=== PATIENT | male | born 1950 | race Caucasian/White ===

== ENCOUNTER → 2017-06-12 | Outpatient (CLI) | payer MEDICARE ==
[~2017-06-12] MED LIST: ALLO300T2 PO; ASPI-999 PO; CIPR500T4 PO; HYDR-3816 PO; LOSA1TAB23 PO; LOSA50TA36 PO; TEMA30CA PO
--- NOTE | 2017-06-12 12:40 | Diagnostic Imaging Report ---
PROCEDURE: US Carotid Duplex Bilateral. TECHNIQUE: Multiple Real-time grayscale images were obtained over the carotid arteries in various projections bilaterally. Additional duplex Doppler and color Doppler images were also obtained. INDICATION: TIA, right facial numbness. COMPARISON: There are no prior studies available for comparison. FINDINGS: There is very mild soft plaque formation in both carotid systems. The flow velocities fail to show any sign of a hemodynamically significant stenosis of the common or internal carotid arteries. Both vertebral arteries are identified and there is antegrade flow bilaterally. IMPRESSION: There is mild atherosclerotic plaque in both carotid systems but there is no evidence for a hemodynamically significant stenosis of the common or internal carotid arteries. Dictated by: Dictated on workstation # [id number]
== END ==
LOC: RAD 10:46
PROVIDERS: ATTEND Internal Medicine
DX: R20.2 Paresthesia of skin (principal); Z86.73 Personal history of transient ischemic attack (TIA), and cerebral infarction without residual deficits
CPT/HCPCS: 93880

== ENCOUNTER → 2017-06-17 | Outpatient (CLI) | payer MEDICARE ==
[~2017-06-17] MED LIST changes: -ASPI-999 PO; -LOSA1TAB23 PO; +LOSA1TAB70 PO; -LOSA50TA36 PO
[2017-06-17 11:29] LABS: BASOPHILS % (AUTO) 0 % (0-10); EOSINOPHILS # (AUTO) 0.2 10^3/uL (0.0-0.3); EOSINOPHILS % (AUTO) 2 % (0-10); LYMPHOCYTES # (AUTO) 1.8 X 10^3 (1.0-4.0); LYMPHOCYTES % (AUTO) 17 % (12-44); MEAN CORPUSCULAR HEMOGLOBIN 32 PG (25-34); MEAN CORPUSCULAR HGB CONC 33 G/DL (32-36); MEAN CORPUSCULAR VOLUME 97 FL (80-99); MEAN PLATELET VOLUME 9.7 FL (7.4-10.4); MONOCYTES # (AUTO) 1.2 X 10^3 (0.0-1.0); MONOCYTES % (AUTO) 11 % (0-12); NEUTROPHILS # (AUTO) 7.7 X 10^3 (1.8-7.8); NEUTROPHILS % (AUTO) 70 % (42-75); PLATELET COUNT 202 10^3/uL (130-400); RED BLOOD COUNT 4.53 10^6/uL (4.35-5.85); RED CELL DISTRIBUTION WIDTH 14.6 % (10.0-14.5); WHITE BLOOD COUNT 10.9 10^3/uL (4.3-11.0)
[2017-06-17 12:12] LABS: EOSINOPHILS % (MANUAL) 1 %; LYMPHOCYTES % (MANUAL) 18 %; NEUTROPHILS % (MANUAL) 75 %
== END ==
LOC: LAB 10:56
PROVIDERS: ATTEND Internal Medicine
DX: R07.9 Chest pain, unspecified (principal); R06.02 Shortness of breath
CPT/HCPCS: 36415; 84484; 85007; 85027; 85379

== ENCOUNTER 2017-07-02 10:07 | Day surgery (SDC) | payer MEDICARE ==
[~2017-07-02] VITALS: Ht 182.9 cm; Wt 113.4 kg
[2017-07-02] VITALS (9 sets, daily range): BP systolic 119–136; BP diastolic 87–107
[~2017-07-02 10:07] MED LIST changes: +LOSA1TAB23 PO; -LOSA1TAB70 PO
[2017-07-02] MEDS ORDERED: NS IV 1000 ML 1,000 ML ONE (10:14)
[2017-07-02] MEDS ORDERED: HEParin (CATH LAB) 2,000 ML IV ONE (10:14)
[2017-07-02] MEDS ORDERED: NS IV 1000 ML 1,000 ML IV SCH ×2 (10:30→14:11)
[2017-07-02 10:50] LABS: RED BLOOD COUNT 4.64 10^6/uL (4.35-5.85); RED CELL DISTRIBUTION WIDTH 14.4 % (10.0-14.5); WHITE BLOOD COUNT 6.4 10^3/uL (4.3-11.0)
[2017-07-02] MEDS ORDERED: LOSA50TA36 PO ×2 (10:52)
[2017-07-02] MEDS ORDERED: ASPI-999 PO ×2 (10:52)
[2017-07-02 11:02] LABS: PROTHROMBIN TIME PATIENT 13.2 SEC (12.2-14.7)
[2017-07-02 11:32] LABS: ALANINE AMINOTRANSFERASE 41 U/L (0-55); ANION GAP 10 MMOL/L (5-14); ASPARTATE AMINO TRANSFERASE 31 U/L (5-34); BILIRUBIN,TOTAL 0.6 MG/DL (0.1-1.0); BLOOD UREA NITROGEN 13 MG/DL (7-18); BUN/CREATININE RATIO 14; CALCIUM 8.8 MG/DL (8.5-10.1); CARBON DIOXIDE 20 MMOL/L (21-32); CHLORIDE 109 MMOL/L (98-107); CHOLESTEROL 178 MG/DL (< 200); CREATININE SERUM 0.91 MG/DL (0.60-1.30); DIRECT LDL 97 MG/DL (1-129); GFR ESTIMATED > 60; GLUCOSE 95 MG/DL (70-105); POTASSIUM 4.3 MMOL/L (3.6-5.0); SODIUM 139 MMOL/L (135-145); TOTAL PROTEIN 7.3 GM/DL (6.4-8.2); TRIGLYCERIDES 207 MG/DL (<150); VLDL CHOLESTEROL 41 MG/DL (5-40)
[2017-07-02] MEDS ORDERED: MIDAZOLAM 5 MG/5 ML (VERSED) VIAL ONE (12:48)
[2017-07-02] MEDS ORDERED: fentaNYL INJECTION 100 MCG/2 ML AMP ONE (12:48)
[2017-07-02] MEDS ORDERED: diphenhydrAMINE 50 MG/ML INJ (BENADRYL) ONE (12:49)
--- NOTE | 2017-07-02 13:05 | Cardiac Procedure Note-CS/ASA ---
Pre-Procedure Note Pre-Op Procedure Note H&P Reviewed The H&P was reviewed, patient examined and no changes noted. Date H&P Reviewed: Jul 02, 2017 Time H&P Reviewed: 13:04 Conscious Sedation Pre-Proced Time Reviewed: 13:04 ASA Class: 3 Airway Mallampati Classification: ([place] appropriate class) I. II. III, IV Lungs Heart ASA score ASA 1: a normal healthy patient ASA 2: a patient with a mild systemic disease (mid diabetes, controlled hypertension, obesity ASA 3: a patient with a severe systemic disease that limits activity (angina , COPD, prior Myocardial infarction) ASA 4: a patient with an incapacitating disease that is a constant threat to life (CHF, renal failure) ASA 5: a moribund patient not expected to survive 24 hrs. (ruptured aneurysm) ASA 6: a declared brain patient whose organs are being harvested. For emergent operations, add the letter E after the classification Grade 2 Sedation Plan: Analgesia, Amnesia, Plan communicated to team members, Discussed options with patient/fam, Discussed risks with patient/fam Note The patient is an appropriate candidate to undergo the planned procedure, sedation, and anesthesia. The patient immediately re-assessed prior to indication. MARCELO PATRICK MD FACP FAC CCDS Jul 02, 2017 13:05
--- NOTE | 2017-07-02 14:14 | Discharge Inst-Post CATH ---
Discharge Inst-CATH Post Cardiac Cath D/C Inst Follow Up/Plan F/u with Dr Miles in 2 weeks CARDIAC CATH DISCHARGE INSTRUCTIONS *Hold Metformin for 48 hours post heart cath. ACTIVITY * Go Home directly and rest. * Limit activity of the leg (or wrist if it was used) for 7 days including aerobics, swimming, jogging, bicycling, etc. * Restrict stair-climbing for 7 days if possible, if not, climb up with your non -cath leg, then bring together on the same step. * Avoid lifting, pushing, pulling or excessive movement of the affected extremity for 7 days. * Customary sexual activity may be resumed after 2 days-use caution not to use a position that strains or causes pain to the affected extremity. * No driving for 24 hours. * NO SMOKING. * Avoid straining for bowel movements for 7 days. * Gentle walking on level ground is allowed. * Returning to work will depend on the type of procedure and the results. Your doctor will discuss this with you. CALL YOUR DOCTOR FOR ANY OF THE FOLLOWING: *If bleeding from the puncture site occurs- Apply gentle pressure to site with clean cloth and call your doctor or EMS. * If a knot or lump forms under the skin, increases in size, or causes pain. * If bruising appears to be worsening or moving further down your leg instead of disappearing. * Temperature above 101 F. CARE OF YOUR GROIN INCISION; * Bruising or purple discoloration of the skin near the puncture site is common. * You may shower only, no bathtub bathing for 5 days. Be careful to avoid slipping as your leg may feel stiff. * If a closure device was used on your femoral artery, please see the attached guide regarding care of the device and your leg. * REMOVE the dressing from your groin the next day after your procedure in the shower. CARE OF YOUR WRIST INCISION; * Bruising or purple discoloration of the skin near the puncture site is common. * You may shower. * DO NOT submerge wrist. * Remove dressing in 24 hours. MARCELO MILES MD FACP [facility] CCDS Jul 02, 2017 14:14
[2017-07-02] MEDS ORDERED: PATIENT MAY USE OWN MEDS, ALL PO SCH (14:15)
--- NOTE | 2017-07-02 14:15 | Discharge Inst-Cardiology ---
Discharge Inst-Cardiac Discharge Medications Continued Medications: Allopurinol (Allopurinol) 300 Mg Tablet 300 MG PO DAILY Aspirin (Aspirin) 81 Mg Tab.chew 81 MG PO DAILY, TAB Losartan Potassium (Losartan Potassium) 50 Mg Tablet 50 MG PO DAILY, TAB Temazepam (Temazepam) 30 Mg Capsule 60 MG PO HS TAKES 2 (30 MG) CAPSULES AT BEDTIME Orders-Post D/C & Referrals Pneu Vac Indicated: Yes MARCELO PATRICK MD FACP FACC CCDS Jul 02, 2017 14:15
--- NOTE | 2017-07-02 23:10 | CARDIAC CATHETERIZATION ---
DATE OF SERVICE: 07/02/2017 PROCEDURE: Cardiac catheterization HISTORY OF PRESENT ILLNESS: The patient is a 66-year-old gentleman, who has multiple coronary artery disease risk factors and who has been experiencing symptoms that are consistent with new onset of angina pectoris. Cardiac catheterization was carried out today after having obtained an informed consent. PROCEDURE: He was brought to the cardiac catheterization laboratory in a fasting state. Right groin was prepared and draped in the usual sterile fashion. Lidocaine 1% used for local anesthesia. Modified Seldinger technique was used to advance a 5-[place] sheath into the right femoral artery. A 5-[place] JL4 catheter was used for left coronary angiography. All catheter exchanges were made over an exchange length wire. This is because that appeared to be considerable tortuosity of the thoracic and abdominal aorta. We used a 5-[place]ian JR4 catheter, right coronary angiography. A 5-[place]ian pigtail catheter was used for left heart catheterization, left ventricular angiography. Pigtail was then pulled back to the aortic arch and aortic arch angiography was performed. He tolerated the procedure well. At the end of the procedure, amenable pressure was used to achieve hemostasis. HEMODYNAMICS: Left ventricular end-diastolic pressure following coronary angiography was 11 mmHg. There was no significant pressure gradient on pullback across the aortic valve. Ascending aortic pressure was 135/40 with a mean of 92 mmHg. LEFT VENTRICULAR ANGIOGRAPHY: Left ventricular angiography was carried out in the right anterior oblique projection. Global left ventricular systolic function normal. No regional wall motion abnormalities are seen. Left ventricular ejection fraction is 60%-65%. There is no significant mitral regurgitation. CORONARY ANGIOGRAPHY: Left main coronary artery, left circumflex artery, left anterior descending artery, right coronary artery are all free of angiographically significant coronary artery disease. Only minor coronary plaques were seen. The left circumflex artery is dominant. THORACIC AORTIC ARCH ANGIOGRAPHY: Aortic arch angiography indicates tortuosity of the thoracic and abdominal aorta, but there does not appear to be significant aneurysm or dissection. The neck arteries, to the extent seen, do not have significant disease. CONCLUSIONS: 1. Angiographically minimal coronary artery disease. 2. Normal global left ventricular systolic function with ejection fraction of 60%-65%. 3. Normal left ventricular end-diastolic pressure. 4. No significant mitral regurgitation. 5. Tortuosity of the thoracic and abdominal aorta. DISCUSSION AND RECOMMENDATIONS: Based on results of the study, it appears appropriate to continue a conservative approach. Risk factor modification has been reviewed and outpatient followup is advised. Job ID: [id number] DocumentID: [id number] Dictated Date: 07/02/2017 13:55:34 [place] Date: 07/02/2017 15:02:26 Dictated By: MARCELO PATRICK MD, MA, FACP, FACC,
== END 2017-07-02 18:00 | disposition home or self-care (01) ==
LOC: CATH 10:07
PROVIDERS: ATTEND Nurse Practitioner Family
DX: R07.89 Other chest pain (principal); I25.10 Atherosclerotic heart disease of native coronary artery without angina pectoris; R06.02 Shortness of breath; I10 Essential (primary) hypertension; R94.31 Abnormal electrocardiogram [ECG] [EKG]; H91.90 Unspecified hearing loss, unspecified ear; M54.9 Dorsalgia, unspecified; Z79.899 Other long term (current) drug therapy; Z82.49 Family history of ischemic heart disease and other diseases of the circulatory system
CPT/HCPCS: 36221; 36415; 80053; 80061; 85027; 85610; 85730; 87081; 93458

== ENCOUNTER → 2017-07-08 | Outpatient (CLI) | payer MEDICARE ==
[~2017-07-08] MED LIST changes: +ASPI-999 PO; -LOSA1TAB23 PO; +LOSA1TAB70 PO; +LOSA50TA36 PO
== END ==
LOC: CARD 08:33
PROVIDERS: ATTEND Internal Medicine Cardiovascular Disease
DX: I44.4 Left anterior fascicular block (principal); I65.23 Occlusion and stenosis of bilateral carotid arteries; I10 Essential (primary) hypertension; R06.02 Shortness of breath; Z87.891 Personal history of nicotine dependence
CPT/HCPCS: 93306

== ENCOUNTER → 2017-07-10 | Outpatient (CLI) | payer MEDICARE ==
[~2017-07-10] MED LIST changes: +LOSA1TAB23 PO; -LOSA1TAB70 PO
== END ==
LOC: RT 08:20
PROVIDERS: ATTEND Internal Medicine
DX: R53.83 Other fatigue; R06.02 Shortness of breath; R07.9 Chest pain, unspecified
CPT/HCPCS: 94060; 94726; 94729

== ENCOUNTER → 2017-07-12 | Outpatient (CLI) | payer MEDICARE ==
--- NOTE | 2017-07-12 10:20 | Diagnostic Imaging Report ---
PA and lateral views of the chest. INDICATION: Shortness of breath. FINDINGS: The lungs are clear. The heart size is normal. No effusion or pneumothorax. The mediastinum and danilo appear unremarkable. Partially visualized posterior fusion hardware and lumbar spine seen. IMPRESSION: Unremarkable exam. Dictated by: Dictated on workstation # [id number]
== END ==
LOC: RAD 09:32
PROVIDERS: ATTEND Internal Medicine
DX: R06.02 Shortness of breath (principal); R05 Cough
CPT/HCPCS: 71020

== ENCOUNTER → 2018-04-21 | Outpatient (CLI) | payer MEDICARE ==
[~2018-04-21] MED LIST changes: +HYDR-34 PO; -HYDR-3816 PO
[2018-04-21 15:38] LABS: BASOPHILS % (AUTO) 0 % (0-10); EOSINOPHILS # (AUTO) 0.2 10^3/uL (0.0-0.3); EOSINOPHILS % (AUTO) 3 % (0-10); HEMATOCRIT 40 % (40-54); HEMOGLOBIN 13.9 G/DL (13.3-17.7); LYMPHOCYTES # (AUTO) 1.9 X 10^3 (1.0-4.0); LYMPHOCYTES % (AUTO) 32 % (12-44); MEAN CORPUSCULAR HEMOGLOBIN 34 PG (25-34); MEAN CORPUSCULAR HGB CONC 34 G/DL (32-36); MEAN CORPUSCULAR VOLUME 99 FL (80-99); MEAN PLATELET VOLUME 10.5 FL (7.4-10.4); MONOCYTES # (AUTO) 0.4 X 10^3 (0.0-1.0); MONOCYTES % (AUTO) 6 % (0-12); NEUTROPHILS # (AUTO) 3.4 X 10^3 (1.8-7.8); NEUTROPHILS % (AUTO) 58 % (42-75); PLATELET COUNT 206 10^3/uL (130-400); RED CELL DISTRIBUTION WIDTH 13.7 % (10.0-14.5); WHITE BLOOD COUNT 5.9 10^3/uL (4.3-11.0)
[2018-04-21 15:57] LABS: ALANINE AMINOTRANSFERASE 17 U/L (0-55); ALKALINE PHOSPHATASE 100 U/L (40-136); AMYLASE 35 U/L (25-125); BILIRUBIN,TOTAL 0.3 MG/DL (0.1-1.0); BUN/CREATININE RATIO 18; CARBON DIOXIDE 24 MMOL/L (21-32); CHLORIDE 109 MMOL/L (98-107); CREATININE SERUM 0.95 MG/DL (0.60-1.30); GFR ESTIMATED > 60; GLUCOSE 95 MG/DL (70-105); LIPASE 8 U/L (8-78); POTASSIUM 4.3 MMOL/L (3.6-5.0); SODIUM 141 MMOL/L (135-145); TOTAL PROTEIN 6.9 GM/DL (6.4-8.2)
== END ==
LOC: LAB 14:53
PROVIDERS: ATTEND Nurse Practitioner Family
DX: M54.5 Low back pain (principal)
CPT/HCPCS: 36415; 80053; 82150; 83690; 85025

== ENCOUNTER → 2018-09-18 | Outpatient (CLI) | payer MEDICARE ==
[~2018-09-18] MED LIST changes: +IOHEXOL 350 MG/ML 100 ML (OMNIPAQUE 350) VIAL IV ONE; -LOSA50TA36 PO; +LOSA50TA7 PO; +NS 250 ML (IVPB) BAG IV ONE; +RECEIVED CONTRAST (Hold Metformin) IV SCH
--- NOTE | 2018-09-18 10:48 | Diagnostic Imaging Report ---
PROCEDURE: CT abdomen with and without contrast. TECHNIQUE: Multiple contiguous axial CT images of the abdomen were obtained prior to and after intravenous administration of iodinated contrast. INDICATION: Weight loss and left lower quadrant pain. COMPARISON: Comparison is made with prior CT from 11/03/2015. FINDINGS: The lung bases are clear. The liver contains a low-density lesion in the inferior right lobe posteriorly, stable approximately 12-13 mm. Gallbladder is surgically absent. There appears to be trace pneumobilia which could be owing to incompetent sphincter. Pancreas is unremarkable on today's study. Previously seen peripancreatic inflammation has resolved. The spleen is unremarkable. No adrenal mass is identified. The kidneys are unremarkable. The aorta is non-aneurysmal. The small and large bowel loops are normal caliber. There is no ascites. Spinal instrumentation of the lumbar spine is seen. No central retroperitoneal or mesenteric lymphadenopathy is detected. IMPRESSION: Essentially unremarkable CT of the abdomen with and without contrast. There appears to be stable probable cyst in the right lobe of the liver. No abdominal lymphadenopathy is detected. Dictated by: Dictated on workstation # [id number]
== END ==
LOC: RAD 09:26
PROVIDERS: ATTEND Internal Medicine
DX: R10.32 Left lower quadrant pain (principal); R63.4 Abnormal weight loss; Z90.49 Acquired absence of other specified parts of digestive tract
CPT/HCPCS: 74170

== ENCOUNTER → 2018-09-22 | Outpatient (CLI) | payer MEDICARE ==
[~2018-09-22] MED LIST changes: -IOHEXOL 350 MG/ML 100 ML (OMNIPAQUE 350) VIAL IV ONE; -NS 250 ML (IVPB) BAG IV ONE; -RECEIVED CONTRAST (Hold Metformin) IV SCH
== END | disposition home or self-care (01) ==
LOC: PREOP 10:22
PROVIDERS: ATTEND Internal Medicine
DX: Z01.818 Encounter for other preprocedural examination (principal)

== ENCOUNTER 2018-09-23 06:56 | Day surgery (SDC) | payer MEDICARE ==
[~2018-09-23] VITALS: Ht 182.9 cm; Wt 113.4 kg
--- OUTSIDE RECORDS SUMMARY | 2018-09-23 07:00 | XMS REPORT | Clinical Summary ---
Author Author [facility] Organization [facility] Address Unknown Phone Unavailable Care Team Providers Care It Professional Name Role Phone Michael Valdes MD PCP Allergies Active Allergy Reactions Severity Noted Date Comments Penicillins 06/20/2017 Unknown Current Medications Prescription Sig. Disp. Refills Start End Date Status Date allopurinol (ZYLOPRIM) Take 300 mg by mouth Active 300 MG tablet daily. losartan (COZAAR) 50 MG Take 50 mg by mouth Active tablet daily. temazepam (RESTORIL) 30 Take 30 mg by mouth Active mg capsule nightly as needed for sleep. diclofenac (VOLTAREN) 75 Take 75 mg by mouth 2 Active MG EC tablet (two) times a day. levoFLOXacin (LEVAQUIN) Take 500 mg by mouth Active 500 MG tablet daily. metroNIDAZOLE (FLAGYL) Take 500 mg by mouth 3 Active 500 MG tablet (three) times a day. Active Problems Problem Noted Date Angina effort (HCC) 06/20/2017 Fatigue Shortness of breath Family History Medical History Relation Name Comments Diabetes Brother DMII Other Brother CAD Other Father CAD Diabetes Mother DMII Hypertension Mother Other Mother CAD Stroke Mother Relation Name Status Comments Brother Father Mother Social History Tobacco Use Types Packs/Day Years Used Date Former Smoker Smokeless Tobacco: Never Used Alcohol Use Drinks/Week oz/Week Comments No Sex Assigned at Date Recorded Not on file Last Filed Vital Signs Vital Sign Reading Time Taken Blood Pressure 142/94 06/20/2017 3:38 PM CDT Pulse 71 06/20/2017 3:38 PM CDT Temperature - - Respiratory Rate - - Oxygen Saturation - - Inhaled Oxygen - - Concentration Weight 115.5 kg (254 lb 9.6 oz) 06/20/2017 3:38 PM CDT Height 182.9 cm (6') 06/20/2017 3:38 PM CDT Body Mass Index 34.53 06/20/2017 3:38 PM CDT Plan of Treatment Health Maintenance Due Date Last Done Comments Hepatitis C Screen 1950 Medicare Annual Wellness 1950 Td # 1950 Colorectal Screening via 2001 Colonoscopy Zoster Vaccine# (1 of 2) 2001 AAA 2016 Depression Screening 2016 PHQ-9 # Fall Risk Assessment # 2016 Pneumococcal Immunization 2016 65+ (1 of 2 - PCV13) Influenza Vaccine (#1) 2018 Results Not on filefrom Last 3 Months
--- OUTSIDE RECORDS SUMMARY | 2018-09-23 07:00 | XMS REPORT | Continuity of Care Document ---
Author Author [facility] Organization [facility] Address Unknown Phone Unavailable Allergies Active Description Code Type Severity Reaction Onset Reported/Identified Relationship to Patient Clinical Status Yes PCN PCN Unknown N/ A 11/03/2015 Yes Penicillins [id number] Drug Allergy Unknown N/A 11/03/2015 Medications There is no data. Problems Date Dx Coded Attending Type Code Diagnosis Diagnosed By 05/30/2012 Ot 211.3 BENIGN NEOPLASM LG BOWEL 05/30/2012 Ot 562.10 DIVERTICULOSIS COLON (W/O MENT OF HEMORR 05/30/2012 Ot V76.51 SCREEN MAL NEOP-COLON 09/01/2014 Ot 401.9 09/01/2014 Ot V72.84 09/02/2014 Ot 401.9 09/02/2014 Ot V72.84 12/08/2014 Ot 401.9 12/08/2014 Ot V72.84 12/15/2014 Ot 401.9 12/15/2014 Ot V72.84 04/18/2015 Ot 401.9 04/18/2015 Ot V72.84 05/20/2015 Ot 401.9 05/20/2015 Ot V72.84 11/03/2015 Ot 401.9 11/03/2015 Ot V72.84 11/03/2015 Ot 401.9 11/03/2015 Ot V72.84 11/05/2015 SINDY CEDENO, AMY Baeza Ot I10 ESSENTIAL (PRIMARY) HYPERTENSION 11/05/2015 AMY CALLAHAN MD Ot K59.00 CONSTIPATION, UNSPECIFIED 11/05/2015 AMY CALLAHAN MD Ot K85.0 IDIOPATHIC ACUTE PANCREATITIS 11/05/2015 AMY CALLAHAN MD Ot M10.9 GOUT, UNSPECIFIED 11/05/2015 AMY CALLAHAN MD Ot Z87.891 PERSONAL HISTORY OF NICOTINE DEPENDENCE 11/23/2015 Ot 401.9 11/23/2015 Ot V72.84 04/12/2016 Ot 401.9 HYPERTENSION NOS 04/12/2016 Ot V72.84 EXAM PRE- OPERATIVE NOS 05/15/2016 Ot 786.2 05/15/2016 Ot 401.9 HYPERTENSION NOS 05/15/2016 Ot V72.84 EXAM PRE- OPERATIVE NOS 09/18/2016 Ot 401.9 HYPERTENSION NOS 09/18/2016 Ot V72.84 EXAM PRE- OPERATIVE NOS 07/02/2017 BAIMA, SANJIV L CANOE MAKER Ot H91.90 UNSPECIFIED HEARING LOSS, UNSPECIFIED EA 07/02/2017 BAIMA, SANJIV L CANOE MAKER Ot I10 ESSENTIAL (PRIMARY) HYPERTENSION 07/02/2017 BAIMA, SANJIV L CANOE MAKER Ot 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 07/02/2017 BAIMA, SANJIV L CANOE MAKER Ot M54.9 DORSALGIA, UNSPECIFIED 07/02/2017 BAIMA, SANJIV L CANOE MAKER Ot R06.02 SHORTNESS OF BREATH 07/02/2017 BAIMA, SANJIV L CANOE MAKER Ot R07.89 OTHER CHEST PAIN 07/02/2017 BAIMA, SANJIV L CANOE MAKER Ot R94.31 ABNORMAL ELECTROCARDIOGRAM [ECG] [EKG] 07/02/2017 BAIMA, SANJIV L CANOE MAKER Ot 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 07/02/2017 BAIMA, SANJIV L CANOE MAKER Ot Z82.49 FAMILY HX OF ISCHEM HEART DIS AND OTH DI 07/05/2017 AMY CALLAHAN MD Ot R20.2 PARESTHESIA OF SKIN 07/05/2017 AMY CALLAHAN MD Ot Z86.73 PRSNL HX OF TIA (TIA), AND CEREB INFRC W 07/08/2017 BAIMA, SANJIV L CANOE MAKER Ot H91.90 UNSPECIFIED HEARING LOSS, UNSPECIFIED EA 07/08/2017 BAIMA, SANJIV L CANOE MAKER Ot I10 ESSENTIAL (PRIMARY) HYPERTENSION 07/08/2017 BAIMA, SANJIV L CANOE MAKER Ot 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 07/08/2017 BAIMA, SANJIV L CANOE MAKER Ot M54.9 DORSALGIA, UNSPECIFIED 07/08/2017 BAIMA, SANJIV L CANOE MAKER Ot R06.02 SHORTNESS OF BREATH 07/08/2017 BAIMA, SANJIV L CANOE MAKER Ot R07.89 OTHER CHEST PAIN 07/08/2017 BAIMA, SANJIV L CANOE MAKER Ot R94.31 ABNORMAL ELECTROCARDIOGRAM [ECG] [EKG] 07/08/2017 SANJIV LANDEROS CANOE MAKER Ot 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 07/08/2017 SANJIV LANDEROS CANOE MAKER Ot Z82.49 FAMILY HX OF ISCHEM HEART DIS AND OTH DI 07/11/2017 AMY CALLAHAN MD Ot R20.2 PARESTHESIA OF SKIN 07/11/2017 AMY CALLAHAN MD Ot Z86.73 PRSNL HX OF TIA (TIA), AND CEREB INFRC W 07/12/2017 AMY CALLAHAN MD Ot R20.2 PARESTHESIA OF SKIN 07/12/2017 AMY CALLAHAN MD Ot Z86.73 PRSNL HX OF TIA (TIA), AND CEREB INFRC W 07/12/2017 AMY CALLAHAN MD Ot R06.02 SHORTNESS OF BREATH 07/12/2017 AMY CALLAHAN MD Ot R07.9 CHEST PAIN, UNSPECIFIED 07/12/2017 DARNELL CEDENO FACC, ALI FACP CCDS Ot I10 ESSENTIAL (PRIMARY) HYPERTENSION 07/12/2017 DARNELL CEDENO FACC, ALI FACP CCDS Ot 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 07/12/2017 DARNELL CEDENO FACC, ALI FACP CCDS Ot 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 07/12/2017 DARNELL CEDENO FACC, ALI FACP CCDS Ot R06.02 SHORTNESS OF BREATH 07/12/2017 DARNELL CEDENO FACC, ALI FACP CCDS Ot Z87.891 PERSONAL HISTORY OF NICOTINE DEPENDENCE 07/12/2017 AMY CALLAHAN MD Ot R06.02 SHORTNESS OF BREATH 07/12/2017 AMY CALLAHAN MD Ot R07.9 CHEST PAIN, UNSPECIFIED 07/12/2017 AMY CALLAHAN MD Ot R53.83 OTHER FATIGUE 07/12/2017 AMY CALLAHAN MD Ot R06.02 SHORTNESS OF BREATH 07/12/2017 AMY CALLAHAN MD Ot R07.9 CHEST PAIN, UNSPECIFIED 07/17/2017 AMY CALLAHAN MD Ot R06.02 SHORTNESS OF BREATH 07/17/2017 AMY CALLAHAN MD Ot R07.9 CHEST PAIN, UNSPECIFIED 07/17/2017 AMY CALLAHAN MD Ot R53.83 OTHER FATIGUE 07/30/2017 AMY CALLAHAN MD Ot M54.16 RADICULOPATHY, LUMBAR REGION 07/30/2017 SINDY CEDENO, AMY Baeza Ot M75.102 UNSP ROTATR-CUFF TEAR/RUPTR OF LEFT SHOU 08/01/2017 DARNELL CEDENO FACC, ALI FACP CCDS Ot I10 ESSENTIAL (PRIMARY) HYPERTENSION 08/01/2017 DARNELL CEDENO FACC, ALI FACP CCDS Ot 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 08/01/2017 DARNELL CEDENO FACC, ALI FACP CCDS Ot 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 08/01/2017 DARNELL CEDENO FACC, ALI FACP CCDS Ot R06.02 SHORTNESS OF BREATH 08/01/2017 DARNELL CEDENO FACC, ALI FACP CCDS Ot Z87.891 PERSONAL HISTORY OF NICOTINE DEPENDENCE 08/01/2017 AMY CALLAHAN MD Ot R06.02 SHORTNESS OF BREATH 08/01/2017 AMY CALLAHAN MD Ot R07.9 CHEST PAIN, UNSPECIFIED 08/01/2017 AMY CALLAHAN MD Ot R53.83 OTHER FATIGUE 08/02/2017 AMY CALLAHAN MD Ot R05 COUGH 08/02/2017 AMY CALLAHAN MD Ot R06.02 SHORTNESS OF BREATH 08/07/2017 DARNELL CEDENO FACC, ALI FACP CCDS Ot I10 ESSENTIAL (PRIMARY) HYPERTENSION 08/07/2017 DARNELL CEDENO FACC, ALI FACP CCDS Ot 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 08/07/2017 DARNELL CEDENO FACC, ALI FACP CCDS Ot 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 08/07/2017 DARNELL CEDENO FACC, ALI FACP CCDS Ot R06.02 SHORTNESS OF BREATH 08/07/2017 DARNELL ENGLANDC, ALI FACP CCDS Ot Z87.891 PERSONAL HISTORY OF NICOTINE DEPENDENCE 08/07/2017 AMY CALLAHAN MD Ot R06.02 SHORTNESS OF BREATH 08/07/2017 AMY CALLAHAN MD Ot R07.9 CHEST PAIN, UNSPECIFIED 08/07/2017 AMY CALLAHAN MD Ot R53.83 OTHER FATIGUE 08/07/2017 AMY CALLAHAN MD Ot R05 COUGH 08/07/2017 AMY CALLAHAN MD Ot R06.02 SHORTNESS OF BREATH 08/22/2017 AMY CALLAHAN MD Ot M54.16 RADICULOPATHY, LUMBAR REGION 08/22/2017 AMY CALLAHAN MD Ot M75.102 UNSP ROTATR-CUFF TEAR/RUPTR OF LEFT SHOU 04/22/2018 DIANA MOSLEY APRN Ot M54.5 LOW BACK PAIN 05/13/2018 DIANA MOSLEY APRN Ot M54.5 LOW BACK PAIN Procedures There is no data. Results Test Result Range Blood CBC with ordered manual differential panel - 06/17/17 11:19 Blood leukocytes automated count (number/volume) 10.9 10*3/uL 4.3-11.0 Blood erythrocytes automated count (number/volume) 4.53 10*6/uL 4.35-5.85 Venous blood hemoglobin measurement (mass/volume) 14.5 g/dL 13.3-17.7 Blood hematocrit (volume fraction) 44 % 40-54 Automated erythrocyte mean corpuscular volume 97 [foz_us] 80-99 Automated erythrocyte mean corpuscular hemoglobin (mass per erythrocyte) 32 pg 25-34 Automated erythrocyte mean corpuscular hemoglobin concentration measurement ( mass/volume) 33 g/dL 32-36 Automated erythrocyte distribution width ratio 14.6 % 10.0-14.5 Automated blood platelet count (count/volume) 202 10*3/uL 130-400 Automated blood platelet mean volume measurement 9.7 [foz_us] 7.4-10.4 Automated blood neutrophils/100 leukocytes 70 % 42-75 Automated blood lymphocytes/100 leukocytes 17 % 12-44 Blood monocytes/100 leukocytes 11 % 0-12 Automated blood eosinophils/100 leukocytes 2 % 0-10 Automated blood basophils/100 leukocytes 0 % 0-10 Blood neutrophils automated count (number/volume) 7.7 10*3 1.8-7.8 Blood lymphocytes automated count (number/volume) 1.8 10*3 1.0-4.0 Blood monocytes automated count (number/volume) 1.2 10*3 0.0-1.0 Automated eosinophil count 0.2 10*3/uL 0.0-0.3 Automated blood basophil count (count/volume) 0.0 10*3/uL 0.0-0.1 Blood blood smear finding identification by light microscopy NO NRG Automated blood complete blood count (hemogram) panel - 07/02/17 10:43 Blood leukocytes automated count (number/volume) 6.4 10*3/uL 4.3-11.0 Blood erythrocytes automated count (number/volume) 4.64 10*6/uL 4.35-5.85 Venous blood hemoglobin measurement (mass/volume) 14.8 g/dL 13.3-17.7 Blood hematocrit (volume fraction) 45 % 40-54 Automated erythrocyte mean corpuscular volume 96 [foz_us] 80-99 Automated erythrocyte mean corpuscular hemoglobin (mass per erythrocyte) 32 pg 25-34 Automated erythrocyte mean corpuscular hemoglobin concentration measurement ( mass/volume) 33 g/dL 32-36 Automated erythrocyte distribution width ratio 14.4 % 10.0-14.5 Automated blood platelet count (count/volume) 243 10*3/uL 130-400 Automated blood platelet mean volume measurement 10.0 [foz_us] 7.4-10.4 PT panel in platelet poor plasma by coagulation assay - 07/02/17 10:43 Prothrombin time (PT) in platelet poor plasma by coagulation assay 13.2 s 12.2-14.7 INR in platelet poor plasma or blood by coagulation assay 1.0 0.8-1.4 Activated partial thromboplastin time (aPTT) in platelet poor plasma bycoagulation assay - 07/02/17 10:43 Activated partial thromboplastin time (aPTT) in platelet poor plasma bycoagulation assay 23 s 24-35 Comprehensive metabolic panel - 07/02/17 10:43 Serum or plasma sodium measurement (moles/volume) 139 mmol/L 135-145 Serum or plasma potassium measurement (moles/volume) 4.3 mmol/L 3.6-5.0 Serum or plasma chloride measurement (moles/volume) 109 mmol/L 98-107 Carbon dioxide 20 mmol/L 21-32 Serum or plasma anion gap determination (moles/volume) 10 mmol/L 5-14 Serum or plasma urea nitrogen measurement (mass/volume) 13 mg/dL 7-18 Serum or plasma creatinine measurement (mass/volume) 0.91 mg/dL 0.60-1.30 Serum or plasma urea nitrogen/creatinine mass ratio 14 NRG Serum or plasma creatinine measurement with calculation of estimated glomerular filtration rate > NRG Serum or plasma glucose measurement (mass/volume) 95 mg/dL 70-105 Serum or plasma calcium measurement (mass/volume) 8.8 mg/dL 8.5-10.1 Serum or plasma total bilirubin measurement (mass/volume) 0.6 mg/dL 0.1-1.0 Serum or plasma alkaline phosphatase measurement (enzymatic activity/volume) 80 U/L 40-136 Serum or plasma aspartate aminotransferase measurement (enzymatic activity/ volume) 31 U/L 5-34 Serum or plasma alanine aminotransferase measurement (enzymatic activity/volume ) 41 U/L 0-55 Serum or plasma protein measurement (mass/volume) 7.3 g/dL 6.4-8.2 Serum or plasma albumin measurement (mass/volume) 4.0 g/dL 3.2-4.5 Lipid 1996 panel - 07/02/17 10:43 Serum or plasma triglyceride measurement (mass/volume) 207 mg/dL <150 Serum or plasma cholesterol measurement (mass/volume) 178 mg/dL < 200 Serum or plasma cholesterol in HDL measurement (mass/volume) 31 mg/ dL 40-60 Cholesterol in LDL [mass/volume] in serum or plasma by direct assay 97 mg/dL 1-129 Serum or plasma cholesterol in VLDL measurement (mass/volume) 41 mg/ dL 5-40 Methicillin resistant Staphylococcus aureus (MRSA) screening culture - 10:43 Methicillin resistant Staphylococcus aureus (MRSA) screening culture NEG NRG Complete blood count (CBC) with automated white blood cell (WBC) differential - 04/21/18 15:20 Blood leukocytes automated count (number/volume) 5.9 10*3/uL 4.3-11.0 Blood erythrocytes automated count (number/volume) 4.10 10*6/uL 4.35-5.85 Venous blood hemoglobin measurement (mass/volume) 13.9 g/dL 13.3-17.7 Blood hematocrit (volume fraction) 40 % 40-54 Automated erythrocyte mean corpuscular volume 99 [foz_us] 80-99 Automated erythrocyte mean corpuscular hemoglobin (mass per erythrocyte) 34 pg 25-34 Automated erythrocyte mean corpuscular hemoglobin concentration measurement ( mass/volume) 34 g/dL 32-36 Automated erythrocyte distribution width ratio 13.7 % 10.0-14.5 Automated blood platelet count (count/volume) 206 10*3/uL 130-400 Automated blood platelet mean volume measurement 10.5 [foz_us] 7.4-10.4 Automated blood neutrophils/100 leukocytes 58 % 42-75 Automated blood lymphocytes/100 leukocytes 32 % 12-44 Blood monocytes/100 leukocytes 6 % 0-12 Automated blood eosinophils/100 leukocytes 3 % 0-10 Automated blood basophils/100 leukocytes 0 % 0-10 Blood neutrophils automated count (number/volume) 3.4 10*3 1.8-7.8 Blood lymphocytes automated count (number/volume) 1.9 10*3 1.0-4.0 Blood monocytes automated count (number/volume) 0.4 10*3 0.0-1.0 Automated eosinophil count 0.2 10*3/uL 0.0-0.3 Automated blood basophil count (count/volume) 0.0 10*3/uL 0.0-0.1 Comprehensive metabolic panel - 04/21/18 15:20 Serum or plasma sodium measurement (moles/volume) 141 mmol/L 135-145 Serum or plasma potassium measurement (moles/volume) 4.3 mmol/L 3.6-5.0 Serum or plasma chloride measurement (moles/volume) 109 mmol/L 98-107 Carbon dioxide 24 mmol/L 21-32 Serum or plasma anion gap determination (moles/volume) 8 mmol/L 5-14 Serum or plasma urea nitrogen measurement (mass/volume) 17 mg/dL 7-18 Serum or plasma creatinine measurement (mass/volume) 0.95 mg/dL 0.60-1.30 Serum or plasma urea nitrogen/creatinine mass ratio 18 NRG Serum or plasma creatinine measurement with calculation of estimated glomerular filtration rate > NRG Serum or plasma glucose measurement (mass/volume) 95 mg/dL 70-105 Serum or plasma calcium measurement (mass/volume) 9.0 mg/dL 8.5-10.1 Serum or plasma total bilirubin measurement (mass/volume) 0.3 mg/dL 0.1-1.0 Serum or plasma alkaline phosphatase measurement (enzymatic activity/volume) 100 U/L 40-136 Serum or plasma aspartate aminotransferase measurement (enzymatic activity/ volume) 22 U/L 5-34 Serum or plasma alanine aminotransferase measurement (enzymatic activity/volume ) 17 U/L 0-55 Serum or plasma protein measurement (mass/volume) 6.9 g/dL 6.4-8.2 Serum or plasma albumin measurement (mass/volume) 4.0 g/dL 3.2-4.5 Serum or plasma amylase measurement (enzymatic activity/volume) - 04/21/18 15: 20 Serum or plasma amylase measurement (enzymatic activity/volume) 35 U /L 25-125 Lipase - 04/21/18 15:20 Lipase 8 U/L 8-78 Encounters ACCT No. Visit Date/Time Discharge Status Pt. Type Provider Facility Loc./Unit Complaint [id number] 04/21/2018 14:53:00 04/21/2018 23:59:59 CLS Outpatient DIANA MOSLEY APRN [facility] LAB ACUTE RIGHT SIDED LOW BACK PAIN WITHOUT SCIATICA [id number] 08/22/2017 08:29:00 08/22/2017 09:33:00 DIS Outpatient AMY CALLAHAN MD [facility] REHAB L RTC TENDONITIS; B L1 RADICULOPATHY [id number] 07/12/2017 09:32:00 07/12/2017 23:59:59 CLS Outpatient AMY CALLAHAN MD [facility] RAD SHORTNESS OF BREATH/ COUGH [id number] 07/10/2017 08:20:00 07/10/2017 23:59:59 CLS Outpatient AMY CALLAHAN MD [facility] RT SOB,FATIGUE [id number] 07/08/2017 08:33:00 07/08/2017 23:59:59 CLS Outpatient DARNELL CEDENO FACCMARCELO FACP CCDS [facility] CARD I44.4 [id number] 07/02/2017 10:07:00 07/02/2017 18:00:00 DIS Outpatient SANJIV LANDEROS [facility] CATH SOB HTN [id number] 06/17/2017 10:56:00 06/17/2017 23:59:59 CLS Outpatient AMY CALLAHAN MD [facility] LAB CHEST PAIN,SOB [id number] 06/12/2017 10:46:00 06/12/2017 23:59:59 CLS Outpatient AMY CALLAHAN MD [facility] RAD LT TIA W/ RUE AND RT FACIAL NUMBNESS [id number] 11/03/2015 10:34:00 11/05/2015 14:00:00 DIS Inpatient AMY CALLAHAN MD [facility] 4TH PANCREATITIS [id number] 03/19/2013 17:27:00 03/19/2013 23:59:59 CLS Outpatient GIORGIO RODRIGUEZ [facility] QUICK [id number] 05/15/2016 09:20:00 Document Registration [id number] 05/15/2016 09:20:00 Document Registration [id number] 05/15/2016 09:20:00 Document Registration [id number] 05/30/2012 06:54:00 Document Registration [id number] 05/29/2012 09:52:00 Document Registration [id number] 09/08/2011 08:22:00 Document Registration [id number] 03/08/2009 17:21:00 Document Registration
[2018-09-23] MEDS ORDERED: D5 LR IV SOLUTION 1,000 ML IV ONE (07:02)
[2018-09-23] MEDS ORDERED: D5 LR IV SOLUTION 1,000 ML IV STA (07:12)
[2018-09-23] MEDS ORDERED: MIDAZOLAM 2 MG/2 ML (VERSED) VIAL IVP ONE (07:15)
[2018-09-23] MEDS ORDERED: fentaNYL INJECTION 100 MCG/2 ML AMP IVP ONE (07:15)
[2018-09-23] MEDS ORDERED: HURRICAINE EXT TUBE (BENZOCAINE) XX PRN (07:15)
[2018-09-23] MEDS ORDERED: LIDOCAINE JELLY 2% 6 ML SYRINGE MM PRN (07:15)
[2018-09-23 07:36] VITALS: BP 157/90
[2018-09-23] MEDS ORDERED: LIDOCAINE JELLY 2% 6 ML SYRINGE ONE (07:57)
[2018-09-23] MEDS ORDERED: fentaNYL INJECTION 100 MCG/2 ML AMP ONE (07:58)
[2018-09-23] MEDS ORDERED: HURRICAINE EXT TUBE (BENZOCAINE) ONE (07:58)
[2018-09-23] MEDS ORDERED: MIDAZOLAM 2 MG/2 ML (VERSED) VIAL ONE ×2 (07:58)
--- NOTE | 2018-09-23 08:43 | Pre-Op Note & Conscious Sedat ---
Pre-Operative Progress Note H&P Reviewed The H&P was reviewed, patient examined and no changes noted. Date H&P Reviewed: Sep 23, 2018 Time H&P Reviewed: 07:45 Conscious Sedation Pre-Proced ASA Score 2 For ASA 3 and 4: Consider anesthesia and medical clearance. Also, for patients with a history of failed moderate sedation consider anesthesia. Airway Lungs Heart ASA score ASA 1: a normal healthy patient ASA 2: a patient with a mild systemic disease (mid diabetes, controlled hypertension, obesity ASA 3: a patient with a severe systemic disease that limits activity (angina , COPD, prior Myocardial infarction) ASA 4: a patient with an incapacitating disease that is a constant threat to life (CHF, renal failure) ASA 5: a moribund patient not expected to survive 24 hrs. (ruptured aneurysm) ASA 6: a declared brain patient whose organs are being harvested. For emergent operations, add the letter E after the classification Mallampati Classification Grade 3 Sedation Plan Analgesia, Amnesia, Plan communicated to team members, Discussed options with patient/fam, Discussed risks with patient/fam The patient is an appropriate candidate to undergo the planned procedure, sedation, and anesthesia. The patient immediately re-assessed prior to indication. AMY CALLAHAN MD Sep 23, 2018 08:43
[2018-09-23 08:45] VITALS: BP 116/73
[2018-09-23 09:15] VITALS: BP 129/91
[2018-09-23 09:33] VITALS: BP 129/91
--- NOTE | 2018-09-23 21:53 | OPERATIVE REPORT ---
DATE OF SERVICE: PANENDOSCOPY SUMMARY Endoscopy is performed for left upper quadrant abdominal pain with weight loss. The patient was placed in the left lateral decubitus position. Prior to undergoing colonoscopy, digital rectal evaluation was performed. Prostate was normal in size, anodular and nontender to digital inspection. Anal sphincter tone was normal and the perianal reflex was intact. No abnormalities on additional inspection of the anal canal or distal rectal vault. The colonoscope was then inserted into the rectum under direct visualization and advanced to the cecum. The cecum was identified by identification of the ileocecal valve and cecal strap. Photographic documentation was obtained. Careful inspection was made as the colonoscope was withdrawn. The patient tolerated the procedure well. He did not have an irritable bowel type response to air insufflation or colonic manipulation. FINDINGS: There is no evidence for internal or external hemorrhoids. The rectum, sigmoid colon, descending colon, transverse colon, ascending colon and cecum were unremarkable with no evidence for neoplasia, diverticular disease, inflammation or other abnormality. ASSESSMENT: Normal colonoscopy to the cecum. Considering this, we then proceeded with EGD evaluation. The endoscope was inserted into the oral cavity and under direct visualization, the esophagus was intubated. The endoscope was passed down the esophagus through the stomach and second portion of the duodenum. Careful inspection was made as the endoscope was withdrawn. FINDINGS: The posterior hypopharynx, arytenoid aperture and true and false vocal folds were unremarkable to visual inspection. There was some mild tortuosity of the esophagus. No evidence for erosive esophagitis was noted. No evidence for diverticulum were present and there was no evidence for mechanical obstruction or dilatation. The Z line was distinct and unremarkable. There was a small sliding hiatal hernia present. The cardia and fundus of the stomach are unremarkable. There is some mild antral erythema present without evidence for erosions or ulceration. A biopsy was obtained and submitted for Helicobacter evaluation. The pylorus, pyloric channel, the duodenal bulb and second portion of the duodenum were unremarkable. ASSESSMENT: Minimal erythema is noted in the antrum. A biopsy was obtained and submitted for histopathology and Helicobacter evaluation. Small sliding hiatal hernia is present without evidence for erosive esophagitis. Relatively unremarkable panendoscopy. Considering this, we discussed the strong possibility of referred pain from a thoracic related radiculopathy. His pain has not progressed and he does not have any other symptoms to suggest underlying more serious disease. His location of pain corresponds anywhere from the T8-T10 thoracic level. In addition, he also reports increased urinary frequency during the day, not so much at night. He has nocturia x1 that is stable and today's prostate evaluation was not indicative of BPH. There have been no medication changes. He is on no diuretic therapy and has minimal caffeine intake or citrus intake. We did discuss possibility of overactive bladder. He is reassured that he is not having any accidents. If it is getting worse, he is to return to discuss medical therapy. He was also reassured about his back pain. Advised Tylenol and for longer car trips or plane rides tend to aggravate his discomfort, he can add ibuprofen to Tylenol. If there is progression of pain, consideration for referral to a pain specialist. An extra 15 minutes face to face time was spent discussing non-GI related likely causes of his abdominal pain as well as possible overactive bladder in regards to his increased urinary frequency. Job ID: [id number] DocumentID: [id number] Dictated Date: 09/23/2018 12:21:12 Office Rental Clerk Date: 09/23/2018 21:52:52 Dictated By: AMY CALLAHAN MD
== END 2018-09-23 09:34 | disposition home or self-care (01) ==
LOC: ENDO 06:56
PROVIDERS: ATTEND Internal Medicine
DX: K44.9 Diaphragmatic hernia without obstruction or gangrene (principal); R35.1 Nocturia; R35.0 Frequency of micturition; R10.12 Left upper quadrant pain

== ENCOUNTER 2022-04-18 08:44 | Outpatient (RCR) | payer MEDICARE ==
[~2022-04-18 08:44] MED LIST changes: -CIPR500T4 PO; +CIPR500T5 PO; +LOSA50TA63 PO; -LOSA50TA7 PO
== END 2022-04-19 | disposition home or self-care (01) ==
PROVIDERS: ATTEND Anesthesiology Pain Medicine
DX: M51.36 Other intervertebral disc degeneration, lumbar region (principal); M96.1 Postlaminectomy syndrome, not elsewhere classified

== ENCOUNTER 2022-05-02 08:00 | Outpatient (RCR) | payer MEDICARE | END 2022-05-02 08:50 | disposition home or self-care (01) | PROVIDERS: ATTEND Anesthesiology Pain Medicine | DX: M51.36 Other intervertebral disc degeneration, lumbar region (principal); M96.1 Postlaminectomy syndrome, not elsewhere classified; I10 Essential (primary) hypertension ==

== ENCOUNTER 2022-05-04 12:10 | Emergency (ER) | payer MEDICARE ==
[~2022-05-04] VITALS: Ht 182.8 cm; Wt 102.0 kg
[2022-05-04] MEDS ORDERED: ASPIRIN 81 MG CHEW (CHILDREN'S ASA) PO ONE (12:45)
[2022-05-04 12:46] LABS: BASOPHILS % (AUTO) 1 % (0-10); EOSINOPHILS # (AUTO) 0.1 10^3/uL (0.0-0.3); EOSINOPHILS % (AUTO) 1 % (0-10); HEMATOCRIT 46 % (40-54); HEMOGLOBIN 15.1 g/dL (13.3-17.7); LYMPHOCYTES % (AUTO) 32 % (12-44); MEAN CORPUSCULAR HEMOGLOBIN 33 pg (25-34); MEAN CORPUSCULAR HGB CONC 33 g/dL (32-36); MEAN CORPUSCULAR VOLUME 100 fL (80-99); MEAN PLATELET VOLUME 9.5 fL (9.0-12.2); MONOCYTES # (AUTO) 0.4 10^3/uL (0.0-1.0); MONOCYTES % (AUTO) 7 % (0-12); NEUTROPHILS # (AUTO) 3.8 10^3/uL (1.8-7.8); NEUTROPHILS % (AUTO) 59 % (42-75); PLATELET COUNT 191 10^3/uL (130-400); WHITE BLOOD COUNT 6.3 10^3/uL (4.3-11.0)
[2022-05-04 12:55] LABS: ALBUMIN 4.3 GM/DL (3.2-4.5); POTASSIUM 4.2 MMOL/L (3.6-5.0)
[2022-05-04 12:56] LABS: CALCIUM 9.1 MG/DL (8.5-10.1)
[2022-05-04 12:57] LABS: TOTAL PROTEIN 7.3 GM/DL (6.4-8.2)
[2022-05-04 12:59] LABS: INR 1.1 (0.8-1.4); PROTHROMBIN TIME PATIENT 14.1 SEC (12.2-14.7)
[2022-05-04] MEDS ORDERED: PANTOPRAZOLE 40 MG (PROTONIX) VIAL IV ONE (13:00)
[2022-05-04] MEDS ORDERED: LIDOCAINE 2% VISCOUS 15 ML UDC PO ONE (13:00)
[2022-05-04] MEDS ORDERED: ANTACID SUSP 30 ML UDC (MYLANTA) PO ONE (13:00)
[2022-05-04 13:01] LABS: CREATININE SERUM 0.89 MG/DL (0.60-1.30)
[2022-05-04 13:04] LABS: MAGNESIUM 2.2 MG/DL (1.6-2.4)
--- NOTE | 2022-05-04 13:12 | Diagnostic Imaging Report ---
CLINICAL INDICATION: Patient with chest pain and shortness of air. EXAM: Portable chest x-ray upright view. COMPARISON: Chest x-ray dated 07/12/2017. FINDINGS: Lungs/pleura: There is interval development of mild right basilar atelectasis. Otherwise, the lungs are clear. There is no pneumothorax. There is no pleural effusion. Mediastinum: There is tortuosity of the descending thoracic aorta.. Pulmonary vasculature: Unremarkable. Heart: Upper limits of normal heart size. Bones/extrathoracic soft tissue: There are degenerative spurs involving the thoracic spine. IMPRESSION: There is mild right lung base atelectasis. There is no radiographic evidence of acute cardiopulmonary process. Dictated by: Dictated on workstation # [id number]
--- NOTE | 2022-05-04 13:48 | ED Respiratory ---
General Chief Complaint: Respiratory Problems Stated Complaint: SOB Source: patient Exam Limitations: no limitations History of Present Illness Date Seen by Provider: May 04, 2022 Time Seen by Provider: 12:27 Initial Comments Patient to the ER by private conveyance with his spouse and chief complaint of 6 weeks of intermittent dull mild 4 or less out of 10 left-sided chest pain, shortness of breath on exertion. No fevers or chills. No history of coronary disease. He does have a history of atrial fibrillation but not on a blood thinner. No history of heart failure. Follows with Dr. Clarke for cardiology and Dr. Valdes. He was try to get in with Dr. Valdes but was not available to get in today. He is not having any pain right at the moment. He does have a history of about once a year he gets a bout of pancreatitis for the past several years. He has had some nausea but none right in the moment. No vomiting. No diarrhea constipation rash. No abdominal surgeries but he did have a gallstone retrieval in the past. Allergies and Home Medications Allergies Coded Allergies: Penicillins (Unverified Allergy, Unknown, 11/03/15) Patient Home Medication List Home Medication List Reviewed: Yes Allopurinol (Allopurinol) 300 Mg Tablet, 300 MG PO DAILY, (Reported) Entered as Reported by: ROXANA BOCANEGRA on 11/03/15 0656 Aspirin (Aspirin) 81 Mg Tab.chew, 81 MG PO DAILY, (Reported) Entered as Reported by: CARA CEBALLOS on 07/02/17 1052 Losartan Potassium (Losartan Potassium) 50 Mg Tablet, 50 MG PO DAILY, (Reported) Entered as Reported by: CARA CEBALLOS on 07/02/17 1052 Temazepam (Temazepam) 30 Mg Capsule, 60 MG PO HS, (Reported) Entered as Reported by: ROXANA BOCANEGRA on 11/03/15 0656 Past Mjjmpet-Snucny-Vxrzil Hx Immunizations Up To Date Tetanus Booster (TDap): Unknown Seasonal Allergies Seasonal Allergies: No Past Medical History Currently Using CPAP: No Currently Using BIPAP: No Hypertension Reproductive Disorders: No Sexually Transmitted Disease: No HIV/AIDS: No Pancreatitis, Polyps, Ulcer Chronic Back Pain Loss of Vision: Denies Hearing Impairment: Hard of Hearing, Hearing Aide Left Family Medical History Cardiovascular disease 19 FATHER G8 BROTHER Completed stroke 19 MOTHER Diabetes mellitus 19 MOTHER Myocardial infarction 19 FATHER G8 BROTHER Physical Exam Vital Signs - First Documented 05/04/22 12:30 Temp 36.4 Pulse 60 Resp 18 B/P (MAP) 138/88 (105) Pulse Ox 95 Capillary Refill : Height: 6'0.00" Weight: 250lbs. 0.0oz. 113.676123hg; 33.9 BMI Method: Progress/Results/Core Measures Suspected Sepsis SIRS Temperature: Pulse: Respiratory Rate: Laboratory Tests 05/04/22 12:30: White Blood Count 6.3 Blood Pressure / Mean: Laboratory Tests 05/04/22 12:30: Creatinine 0.89, INR Comment 1.1, Platelet Count 191, Total Bilirubin 1.0 Results/Orders Lab Results Laboratory Tests Test 05/04/22 12:30 05/04/22 16:15 Range/Units White Blood Count 6.3 4.3-11.0 10^3/uL Red Blood Count 4.62 4.30-5.52 10^6/uL Hemoglobin 15.1 13.3-17.7 g/dL Hematocrit 46 40-54 % Mean Corpuscular Volume 100 H 80-99 fL Mean Corpuscular Hemoglobin 33 25-34 pg Mean Corpuscular Hemoglobin Concent 33 32-36 g/dL Red Cell Distribution Width 13.5 10.0-14.5 % Platelet Count 191 130-400 10^3/uL Mean Platelet Volume 9.5 9.0-12.2 fL Immature Granulocyte % (Auto) 1 % Neutrophils (%) (Auto) 59 42-75 % Lymphocytes (%) (Auto) 32 12-44 % Monocytes (%) (Auto) 7 0-12 % Eosinophils (%) (Auto) 1 0-10 % Basophils (%) (Auto) 1 0-10 % Neutrophils # (Auto) 3.8 1.8-7.8 10^3/uL Lymphocytes # (Auto) 2.0 1.0-4.0 10^3/uL Monocytes # (Auto) 0.4 0.0-1.0 10^3/uL Eosinophils # (Auto) 0.1 0.0-0.3 10^3/uL Basophils # (Auto) 0.0 0.0-0.1 10^3/uL Immature Granulocyte # (Auto) 0.0 0.0-0.1 10^3/uL Prothrombin Time 14.1 12.2-14.7 SEC INR Comment 1.1 0.8-1.4 Activated Partial Thromboplast Time 34 24-35 SEC Sodium Level 140 135-145 MMOL/L Potassium Level 4.2 3.6-5.0 MMOL/L Chloride Level 106 98-107 MMOL/L Carbon Dioxide Level 22 21-32 MMOL/L Anion Gap 12 5-14 MMOL/L Blood Urea Nitrogen 13 7-18 MG/DL Creatinine 0.89 0.60-1.30 MG/DL Estimat Glomerular Filtration Rate 92 BUN/Creatinine Ratio 15 Glucose Level 89 70-105 MG/DL Calcium Level 9.1 8.5-10.1 MG/DL Corrected Calcium 8.9 8.5-10.1 MG/DL Magnesium Level 2.2 1.6-2.4 MG/DL Total Bilirubin 1.0 0.1-1.0 MG/DL Aspartate Amino Transf (AST/SGOT) 23 5-34 U/L Alanine Aminotransferase (ALT/SGPT) 16 0-55 U/L Alkaline Phosphatase 87 40-136 U/L Myoglobin 51.3 10.0-92.0 NG/ML Troponin I < 0.028 < 0.028 <0.028 NG/ML B-Type Natriuretic Peptide 27.6 <100.0 PG/ML Total Protein 7.3 6.4-8.2 GM/DL Albumin 4.3 3.2-4.5 GM/DL Lipase 6 L 8-78 U/L My Orders Orders - HE,PRICE J Cbc With Automated Diff (05/04/22 12:34) Magnesium (05/04/22 12:34) Chest 1 View, Ap/Pa Only (05/04/22 12:34) Ekg Tracing (05/04/22 12:34) Comprehensive Metabolic Panel (05/04/22 12:34) Myoglobin Serum (05/04/22 12:34) Protime With Inr (05/04/22 12:34) Partial Thromboplastin Time (05/04/22 12:34) O2 (05/04/22 12:34) Monitor-Rhythm Ecg Trace Only (05/04/22 12:34) Lipid Panel (05/05/22 06:00) Ed Iv/Invasive Line Start (05/04/22 12:34) Lipase (05/04/22 12:34) Bnp [place] (05/04/22 12:34) Troponin I Maranda (05/04/22 12:34) Aspirin Chewable Tablet (Baby Aspirin Ch (05/04/22 12:45) Lidocaine 2% Viscous 15 Ml (Xylocaine Vi (05/04/22 13:00) Antacid Suspension (Mylanta Suspension (05/04/22 13:00) Pantoprazole Injection (Protonix Injecti (05/04/22 13:00) Ed Iv/Invasive Line Start (05/04/22 14:07) Ns Iv 500 Ml (Sodium Chloride 0.9%) (05/04/22 14:15) Troponin I Maranda (05/04/22 16:00) Us Pancreas [id number] (05/04/22 ) Medications Given in ED Current Medications Medications Dose Ordered Sig/Lisa Route Start Time Stop Time Status Last Admin Dose Admin Al Hydrox/Mg Hydrox/Simethicone 30 ml ONCE ONCE PO 05/04/22 13:00 05/04/22 13:02 DC 05/04/22 13:02 30 ML Aspirin 324 mg ONCE ONCE PO 05/04/22 12:45 05/04/22 12:46 DC 05/04/22 12:50 324 MG Lidocaine HCl 15 ml ONCE ONCE PO 05/04/22 13:00 05/04/22 13:02 DC 05/04/22 13:02 15 ML Pantoprazole 40 mg ONCE ONCE IV 05/04/22 13:00 05/04/22 13:02 DC 05/04/22 13:02 40 MG Sodium Chloride 500 ml @ 0 mls/hr Q0M ONCE IV 05/04/22 14:15 05/04/22 14:16 DC 05/04/22 14:20 500 MLS/HR Vital Signs/I&O 05/04/22 12:30 Temp 36.4 Pulse 60 Resp 18 B/P (MAP) 138/88 (105) Pulse Ox 95 Capillary Refill : Progress Note #1: Time: 14:04 Progress Note First troponin is negative. Last episode of chest pain was at 10 AM this morning so a delta troponin of 6 hours would be 1600. Plan to get an ultrasound of the pancreas to rule out pancreatitis. Lipase is normal but he has a history of chronic pancreatitis so it may be misleading. He does not want a thing for pain. We will give him something to drink and if everything looks okay we will send him back to Dr. Clarke to discuss outpatient work-up. Did not see any nodules on the chest x-ray like the patient mention from [place]. Will encourage him to follow-up with Dr. Valdes outpatient to review imaging studies and decide if any further imaging of the chest is indicated. Progress Note #2: Time: 18:35 Progress Note The patient is comfortable having no pain at this time. No material deterioration during his ER stay. It was grossly exaggerated due to technological issue making it impossible for radiology to see his ultrasound. We were unable to fix this in a timely manner and the patient would like to go home. Were going to honor his request and allow him to discharge with instructions to follow-up next week with Dr. Valdes to review the contents of the radiology report that should be then available for his ultrasound pancreas. On our review we were not able to see any obstructions, stones, cysts, abscesses or significant pancreatitis on the head. Most of the rest of the body and tail of the pancreas were obscured by bowel gas. ECG Initial ECG Impression Date: May 04, 2022 Initial ECG Impression Time: 12:42 Initial ECG Rate: 56 Initial ECG Rhythm: Normal Sinus Initial ECG Intervals: Normal Initial ECG Impression: Normal Initial ECG Comparisson: No Previous ECG Available Comment Normal sinus rhythm without clinically relevant ST changes. Diagnostic Imaging Diagonstic Imaging: Xray Plain Films/CT/US/NM/MRI: chest Comments [facility], [place] NAME: AMY AGUILAR Aryan [facility] REC#: [id number] PT STATUS: REG ER : 1950 PHYSICIAN: PRICE CUTLER MD ADMIT DATE: 05/04/22/ER Draft Date of Exam:05/04/22 CHEST 1 VIEW, AP/PA ONLY CLINICAL INDICATION: Patient with chest pain and shortness of air. EXAM: Portable chest x-ray upright view. COMPARISON: Chest x-ray dated 07/12/2017. FINDINGS: Lungs/pleura: There is interval development of mild right basilar atelectasis. Otherwise, the lungs are clear. There is no pneumothorax. There is no pleural effusion. Mediastinum: There is tortuosity of the descending thoracic aorta.. Pulmonary vasculature: Unremarkable. Heart: Upper limits of normal heart size. Bones/extrathoracic soft tissue: There are degenerative spurs involving the thoracic spine. IMPRESSION: There is mild right lung base atelectasis. There is no radiographic evidence of acute cardiopulmonary process. Dictated on workstation # [id number] Dict: 05/04/22 1301 Trans: 05/04/22 1311 [facility] [id number] Interpreted by: HUMA PYLE MD Electronically signed by: Reviewed: Reviewed by Me Diagonstic Imaging: Ultrasound Plain Films/CT/US/NM/MRI: abdomen Reviewed: Reviewed by Me Departure Impression Primary Impression: Chest pain Qualified Codes: R07.9 - Chest pain, unspecified Disposition: 01 HOME, SELF-CARE Condition: Stable Departure-Patient Inst. Decision time for Depature: 18:33 Referrals: AMY VALDES MD (PCP/Family) Primary Care Physician Patient Instructions: Chest Pain (DC) Add. Discharge Instructions: We did not find anything immediately dangerous in your work-up today however you will need to follow-up with a contract engineer, Dr. Clarke to discuss completing a more thorough cardiac examination for your chest pain. Return to the nearest ER if you are having severe, persistent chest pain or shortness of air. Drink plenty of fluids. Continue to take your medications as prescribed. I could not find any nodules seen on your chest x-ray nor to the radiologist. Follow-up with Dr. Valdes to review x-rays from [place] before determining how best to further work that up if necessary. Stay out of the heat until you have completed a thorough work-up with Dr. Lynn quinn. Radiology was unable to complete a read of our ultrasound in a timely fashion due to technological issues. Please follow-up with Dr. Valdes for a review of the ultrasound of your pancreas today. All discharge instructions reviewed with patient and/or family. Voiced understanding. Copy Copies To 1: AMY VALDES MD, TITUS J May 04, 2022 13:48
[2022-05-04] MEDS ORDERED: NS IV 500 ML 500 ML IV ONE (14:15)
[2022-05-04 18:45] VITALS: BP 147/91
--- NOTE | 2022-05-04 19:48 | Diagnostic Imaging Report ---
INDICATION: CHEST PAIN, SOA TECHNIQUE: Multiple real time covington scale sonographic images were obtained of the upper abdomen. CORRELATION STUDY: None FINDINGS: This is extremely limited, focused ultrasound examination to the region of the pancreas. What is likely the pancreatic head has a grossly unremarkable appearance. Majority of the pancreas, however, is not well delineated on this study. IMPRESSION: 1.Significant limitations with essentially nonvisualization of the pancreas. If further assessment is desired, perhaps correlation with CT would be recommended. Dictated by: Dictated on workstation # [id number]
== END 2022-05-04 18:45 | disposition home or self-care (01) ==
LOC: EDUNIT# 12:10 → ER 12:13
DX: R07.89 Other chest pain (principal)
CPT/HCPCS: 36415; 71045; 76705; 80053; 83690; 83735; 83874; 83880; 84484; 85025; 85610; 85730; 93041

== ENCOUNTER → 2022-05-07 | Outpatient (CLI) | payer MEDICARE | LOC: LAB 13:39 | PROVIDERS: ATTEND Internal Medicine | DX: R06.02 Shortness of breath (principal) | CPT/HCPCS: 36415; 85379 ==

== ENCOUNTER → 2022-10-05 | Outpatient (CLI) | payer MEDICARE ==
--- NOTE | 2022-10-05 13:39 | Diagnostic Imaging Report ---
INDICATION: Hypertension with atrial fibrillation. COMPARISON with 07/12/2017 chest x-ray FINDINGS: PA and lateral views. The lungs are well-aerated and clear. The heart is not enlarged. There is no pulmonary edema. No pneumothorax or pleural effusions. No bony abnormalities. IMPRESSION: Normal PA and lateral chest. Dictated by: Dictated on workstation # [id number]
== END ==
LOC: RAD 08:47
PROVIDERS: ATTEND Internal Medicine Critical Care Medicine
DX: I25.10 Atherosclerotic heart disease of native coronary artery without angina pectoris (principal); I48.0 Paroxysmal atrial fibrillation; E78.2 Mixed hyperlipidemia; I10 Essential (primary) hypertension
CPT/HCPCS: 71046

== ENCOUNTER → 2023-02-21 | Outpatient (CLI) | payer MEDICARE ==
--- NOTE | 2023-02-21 15:42 | Diagnostic Imaging Report ---
INDICATION: Pain COMPARISON: None available TECHNIQUE: 3 radiographs of the right knee dated 02/21/2023. FINDINGS: No acute fracture or dislocation. No destructive osseous process. Minimal medial joint space narrowing. Lateral compartment is well maintained. No significant osteophytosis. No knee joint effusion. No suspicious radiopaque foreign body. IMPRESSION: No acute osseous abnormality with minimal degenerative changes for age. Dictated by: Dictated on workstation # [id number]
== END ==
LOC: RAD 10:49
PROVIDERS: ATTEND Internal Medicine
DX: M25.561 Pain in right knee (principal)
CPT/HCPCS: 73562

== ENCOUNTER 2023-02-26 20:04 | Emergency (ER) | payer MEDICARE ==
[2023-02-26] MEDS ORDERED: MAGNESIUM CITRATE 300 ML BTL ONE (20:35)
--- NOTE | 2023-02-26 20:40 | ED GI ---
General Chief Complaint: Abdominal/GI Problems Stated Complaint: IMPACTED BOWEL Nursing Triage Note: Pt presents with c/o abdominal pain. States he's not had a BM in approx 3 days. He started taking hydrocodone for knee pain approx 1 week ago. Tonight pain worsened at approx 1830, has been taking miralax and magnesium at home. Source of Information: Patient, Family () Exam Limitations: No Limitations History of Present Illness Date Seen by Provider: February 26, 2023 Time Seen by Provider: 20:24 Initial Comments 72-year-old male who was recently started on hydrocodone for left knee pain presents for decreased frequency of bowel movements. He states has been unable to have a bowel movement for the last 3 days. He feels as though there is something blocking his rectum and he has pressure there all of the time. He has pain in that area as well. No nausea or vomiting. No fevers or chills. He has tried senna, MiraLAX and magnesium tablets at home without much relief. All other systems reviewed and negative except documented per HPI. Voice recognition software was used to help create this chart Allergies and Home Medications Allergies Coded Allergies: Penicillins (Unverified Allergy, Unknown, 11/03/15) Patient Home Medication List Home Medication List Reviewed: Yes Allopurinol (Allopurinol) 300 Mg Tablet, 300 MG PO DAILY, (Reported) Entered as Reported by: ROXANA BOCANEGRA on 11/03/15 0656 Aspirin (Aspirin) 81 Mg Tab.chew, 81 MG PO DAILY, (Reported) Entered as Reported by: CARA CEBALLOS on 07/02/17 1052 Losartan Potassium (Losartan Potassium) 50 Mg Tablet, 50 MG PO DAILY, (Reported) Entered as Reported by: CARA CEBALLOS on 07/02/17 1052 Temazepam (Temazepam) 30 Mg Capsule, 60 MG PO HS, (Reported) Entered as Reported by: ROXANA BOCANEGRA on 11/03/15 0656 Review of Systems Review of Systems Constitutional: see HPI Past Hxabkia-Iozmba-Umwplp Hx Patient Social History Tobacco Use?: No Use of E-Cig and/or Vaping dev: No Substance use?: No Alcohol Use?: No Immunizations Up To Date Tetanus Booster (TDap): Unknown Influenza Vaccine Up-to-Date: Yes; Up-to-Date First/Initial COVID19 Vaccinat: 12/01/20 Second COVID19 Vaccination Alejandro: 12/29/20 Third COVID19 Vaccination Date: 08/13/21 Seasonal Allergies Seasonal Allergies: No Past Medical History Currently Using CPAP: No Currently Using BIPAP: No Hypertension Reproductive Disorders: No Sexually Transmitted Disease: No HIV/AIDS: No Pancreatitis, Polyps, Ulcer Chronic Back Pain Loss of Vision: Denies Hearing Impairment: Hard of Hearing, Hearing Aide Left Family Medical History Reviewed Nursing Family Hx Cardiovascular disease 19 FATHER G8 BROTHER Completed stroke 19 MOTHER Diabetes mellitus 19 MOTHER Myocardial infarction 19 FATHER G8 BROTHER No Pertinent Family Hx Physical Exam Vital Signs Vital Signs - First Documented 02/26/23 02/26/23 20:13 20:48 Temp 36.4 Pulse 86 Resp 16 B/P (MAP) 143/100 (114) Pulse Ox 96 O2 Delivery Room Air Capillary Refill : Less Than 3 Seconds Height/Weight/BMI Height: 6'0.00" Weight: 250lbs. 0.0oz. 113.530872hd; 30.00 BMI Method: General Appearance: WD/WN, no apparent distress HEENT: normal ENT inspection, pharynx normal Neck: full range of motion, normal inspection Respiratory: chest non-tender, lungs clear, normal breath sounds, no respira tory distress, no accessory muscle use Cardiovascular: regular rate, rhythm, no murmur Gastrointestinal: soft, no organomegaly, other (Mild diffuse tenderness throughout the abdomen without any rebound or guarding. He has hyperactive bowel sounds.) Neurologic/Psychiatric: alert, oriented x 3 Progress/Results/Core Measures Results/Orders My Orders Orders - JOHN CISNEROS DO Magnesium Citrate Oral Soln (Citrate Of (02/26/23 20:35) Medications Given in ED Current Medications Medications Dose Ordered Sig/Lisa Route Start Time Stop Time Status Last Admin Dose Admin Magnesium Citrate 300 ml STK-MED ONCE .ROUTE 02/26/23 20:35 02/26/23 20:39 DC 02/26/23 20:40 300 ML Vital Signs/I&O 02/26/23 02/26/23 20:13 20:48 Temp 36.4 Pulse 86 77 Resp 16 B/P (MAP) 143/100 (114) 131/91 Pulse Ox 96 O2 Delivery Room Air Blood Pressure Mean: 114 Departure Communication (Admissions) Given the patient's hyperactive bowel sounds I believe he likely has a fecal impaction. There is no evidence for obstruction at this time. He is not having any nausea or vomiting. His abdominal exam is nonsurgical is not distended whatsoever. Advised we can try more aggressive medications versus manual disimpaction here at the bedside. After discussion we will go ahead and try magnesium citrate. Advised in the next 24 hours if he does not have any relief he needs to come back for manual disimpaction. Impression Primary Impression: Fecal impaction Disposition: HOME, SELF-CARE Condition: Stable Departure-Patient Inst. Referrals: AMY CALLAHAN MD (PCP/Family) Primary Care Physician Patient Instructions: Fecal Impaction (DC) Add. Discharge Instructions: Drink the magnesium citrate when you get home. This should cause you to have a bowel movement in the next 24 hours. If not please return to the emergency department. If your symptoms change or become severe return to the emergency department immediately, specifically develop fevers or vomiting. Follow-up with your primary doctor for any nonemergent needs. I would continue to take MiraLAX while taking hydrocodone even once her current symptoms resolved. All discharge instructions reviewed with patient and/or family. Voiced understanding. JOHN CISNEROS DO February 26, 2023 20:40
[2023-02-26 20:48] VITALS: BP 131/91
== END 2023-02-26 20:48 | disposition home or self-care (01) ==
LOC: EDUNIT# 20:04 → ER 20:06
DX: K56.41 Fecal impaction (principal); M25.562 Pain in left knee; Z79.1 Long term (current) use of non-steroidal anti-inflammatories (NSAID)